=== PATIENT | female | born 1950 | race Caucasian/White ===

== ENCOUNTER → 2017-08-18 | Outpatient (CLI) | payer MEDICARE ==
[~2017-08-18] MED LIST: REGADENOSON 0.4 MG/5 ML SYRINGE ONE
== END | disposition home or self-care (01) ==
LOC: CFH 08:30
PROVIDERS: ATTEND Internal Medicine Cardiovascular Disease
DX: I21.29 ST elevation (STEMI) myocardial infarction involving other sites (principal); I10 Essential (primary) hypertension
CPT/HCPCS: 78452; 93017; A9502; J2785

== ENCOUNTER 2020-09-29 11:31 | Inpatient (IN) | payer MEDICARE ==
[2020-09-29] VITALS (9 sets, daily range): BP systolic 113–165; BP diastolic 51–79
[~2020-09-29] VITALS: Ht 157.5 cm; Wt 71.1 kg
[2020-09-29] MEDS ORDERED: ASPI-963 PO (11:46)
--- NOTE | 2020-09-29 11:46 | NUR ---
Sob/chest tightness/tingling to hand/legs x months-much worse today hx of mi/copd ecg obtained, placed on cardiac nurse took 325mg of asa at home this am
[2020-09-29] MEDS ORDERED: TERA2CAP3 PO (11:51)
[2020-09-29] MEDS ORDERED: LEVO88TA2 PO ×2 (11:51)
[2020-09-29] MEDS ORDERED: LISI-170 PO (11:51)
[2020-09-29] MEDS ORDERED: AMLO-211 PO (11:51)
[2020-09-29] MEDS ORDERED: UMEC1DIS INH (11:51)
[2020-09-29] MEDS ORDERED: HYDR25TA6 PO (11:51)
[2020-09-29] MEDS ORDERED: ROSU20TA2 PO (11:51)
[2020-09-29] MEDS ORDERED: ALBU90AE INH (11:51)
[2020-09-29] MEDS ORDERED: SODIUM CHLORIDE FLUSH 10ML SYR IVF ONE (12:00)
[2020-09-29] MEDS ORDERED: SODIUM CHLORIDE 0.9% 1,000ML IVBOLUS ONE (12:00)
[2020-09-29 12:26] LABS: BASOPHILS % (AUTO) 2 % (0-1); EOSINOPHILS % (AUTO) 2 % (1-7); LYMPHOCYTES % (AUTO) 20 % (22-44); MEAN CORPUSCULAR HEMOGLOBIN 23.4 pg (27.0-34.8); MEAN CORPUSCULAR HGB CONC 30.7 g/dL (32.4-35.8); MEAN PLATELET VOLUME 7.3 fL (7.4-10.4); MONOCYTES % (AUTO) 10 % (2-9); NEUTROPHILS % (AUTO) 67 % (42-75); PLATELET COUNT 344 x10^3/uL (130-400); RED BLOOD COUNT 3.06 x10^6/uL (3.82-5.3); RED CELL DISTRIBUTION WIDTH 17.9 % (9.6-15.2)
[2020-09-29 12:36] LABS: ALANINE AMINOTRANSFERASE 38 U/L (12-78); ALBUMIN 3.4 g/dL (3.4-5.0); ANION GAP 3 mmol/L (5-15); CALCIUM 8.5 mg/dL (8.5-10.1); CHLORIDE 99 mmol/L (98-107); CREATININE 0.71 mg/dL (0.55-1.02)
[2020-09-29 12:39] LABS: ALKALINE PHOSPHATASE 69 U/L (45-117); BILIRUBIN,TOTAL 0.3 mg/dL (0.2-1.0)
--- NOTE | 2020-09-29 13:22 | NUR ---
TASK RN: PT RESTING ON GURNEY. NADN. OLIVIA. AWARE OF POC FOR BLOOD TRANSFUSION. PT IS AGREEABLE. CONSENT SIGNED BY PT, THIS RN, AND ERP DR. NAYAK.
[2020-09-29 13:37] LABS: MICROSCOPIC NOT IND
--- NOTE | 2020-09-29 13:48 | NUR ---
TASK RN: 1ST UNIT BLOOD INFUSING.
--- NOTE | 2020-09-29 13:59 | NUR ---
15 min transfusion assessment unremarkable Erp to bedside for fecal occult exam
--- NOTE | 2020-09-29 15:06 | NUR ---
1st unit of blood 75% complete Hospitalist at bedside (Dr. Bermudez) Attempted to call report x1. Inpatient RN unavailable
[2020-09-29] MEDS ORDERED: POLYETHYLENE GLYCOL 17 GM PACKET PO PRN (15:30)
[2020-09-29] MEDS ORDERED: BISACODYL 10 MG SUPP PR PRN (15:30)
[2020-09-29] MEDS ORDERED: ACETAMINOPHEN 500 MG TABLET PO PRN (15:30)
[2020-09-29] MEDS ORDERED: ONDANSETRON ODT 4 MG PO PRN (15:30)
[2020-09-29] MEDS ORDERED: ONDANSETRON 2MG/ML, 2ML IVPush PRN (15:30)
[2020-09-29] MEDS ORDERED: ALBUTEROL SULFATE 2.5 MG/3 ML NPPB PRN (15:30)
[2020-09-29 15:53] LABS: TROPONIN I < 0.015 ng/mL (0.000-0.045)
[2020-09-29] MEDS: SENNA/DOCUSATE TABLET PO SCH (20:02)
[2020-09-29] MEDS: PANTOPRAZOLE 40 MG IV IVPush SCH ×2 (20:02→20:13)
[2020-09-29 20:21] LABS: INTERNATIONAL NORMALIZED RATIO 1.04 (0.93-1.1); PROTHROMBIN TIME 11.1 Seconds (9.6-11.5)
[2020-09-29] MEDS ORDERED: TERAZOSIN 2MG CAPSULE PO SCH (21:00)
[2020-09-29] MEDS ORDERED: ATORVASTATIN 80 MG TABLET PO SCH (21:00)
[2020-09-30 02:45] VITALS: BP 105/53
[2020-09-30] MEDS ORDERED: LEVOTHYROXINE 88 MCG TABLET PO SCH (06:00)
[2020-09-30 06:43] VITALS: BP 114/64
[2020-09-30] MEDS: SENNA/DOCUSATE TABLET PO SCH (07:40)
[2020-09-30] MEDS: PANTOPRAZOLE 40 MG IV IVPush SCH (07:41)
[2020-09-30 08:31] LABS: ALBUMIN 3.3 g/dL (3.4-5.0); ANION GAP 4 mmol/L (5-15); CALCIUM 8.4 mg/dL (8.5-10.1); CHLORIDE 102 mmol/L (98-107)
[2020-09-30 08:40] LABS: ALANINE AMINOTRANSFERASE 35 U/L (12-78); ALKALINE PHOSPHATASE 68 U/L (45-117); BASOPHILS % (AUTO) 1 % (0-1); BILIRUBIN,TOTAL 0.5 mg/dL (0.2-1.0); CREATININE 0.76 mg/dL (0.55-1.02); EOSINOPHILS % (AUTO) 2 % (1-7); LYMPHOCYTES % (AUTO) 15 % (22-44); MEAN CORPUSCULAR HEMOGLOBIN 25.3 pg (27.0-34.8); MEAN CORPUSCULAR HGB CONC 31.7 g/dL (32.4-35.8); MEAN PLATELET VOLUME 7.4 fL (7.4-10.4); MONOCYTES % (AUTO) 8 % (2-9); NEUTROPHILS % (AUTO) 73 % (42-75); PLATELET COUNT 327 x10^3/uL (130-400); RED BLOOD COUNT 4.04 x10^6/uL (3.82-5.3); RED CELL DISTRIBUTION WIDTH 17.9 % (9.6-15.2); TOTAL PROTEIN 6.8 g/dL (6.4-8.2)
[2020-09-30] MEDS ORDERED: AMLODIPINE 5 MG TABLET PO SCH (09:00)
[2020-09-30] MEDS ORDERED: HYDROCHLOROTHIAZIDE 25 MG TABLET PO SCH (09:00)
[2020-09-30] MEDS ORDERED: LISINOPRIL 40 MG TABLET PO SCH (09:00)
[2020-09-30 09:02] LABS: FREE T4 (FREE THYROXINE) 0.25 ng/dL (0.76-1.46)
[2020-09-30] MEDS ORDERED: IRON1TAB37 PO (14:21)
[2020-09-30] MEDS ORDERED: SODIUM CHLORIDE 0.9% 1,000ML IV ONE (17:00)
[2020-10-01] MEDS ORDERED: GOLYTELY 4,000ML ORAL.SOL PO ONE (14:00)
== END 2020-09-30 17:52 | disposition home or self-care (01) | DRG 378 ==
LOC: ED 12:17 → EDIP 14:01 → 3N 15:45
PROVIDERS: ADMIT Hospitalist; ATTEND Family Medicine
PROC: 30233N1 Transfusion of Nonautologous Red Blood Cells into Peripheral Vein, Percutaneous Approach (ICD-10-PCS; principal; 2020-09-29)
DX: K92.2 Gastrointestinal hemorrhage, unspecified (principal); E87.1 Hypo-osmolality and hyponatremia; D62 Acute posthemorrhagic anemia; D50.9 Iron deficiency anemia, unspecified; E03.9 Hypothyroidism, unspecified; E11.9 Type 2 diabetes mellitus without complications; Z95.5 Presence of coronary angioplasty implant and graft; J44.9 Chronic obstructive pulmonary disease, unspecified; I25.10 Atherosclerotic heart disease of native coronary artery without angina pectoris; F17.200 Nicotine dependence, unspecified, uncomplicated; E86.0 Dehydration; E87.6 Hypokalemia; I10 Essential (primary) hypertension; I25.2 Old myocardial infarction
CPT/HCPCS: 36415; 36430; 71045; 80053; 81003; 82728; 83036; 83540; 83550; 83605; 83690; 84439; 84443; 84484; 85014; 85018; 85025; 85610; 86850; 86900; 86923; 93005; 96360; 96361; G0378; C9113; J7030; P9016